=== PATIENT | male | born 1995 | race Hispanic/Latino ===

== ENCOUNTER 2022-08-22 14:55 | Emergency (ER) | payer SELFPAY ==
--- OUTSIDE RECORDS SUMMARY | 2022-08-22 14:59 | XMS REPORT | Continuity of Care Document ---
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 [id number] 17:40:00 Test Item Value Reference Range Interpretation Comments Segs (test code = Segs) 73.7 45.0-75.0 [id number] 17:40:00 Test Item Value Reference Range Interpretation Comments Monocytes # (test code 1.4 See_Comment [Aut omated message] The = Monocytes #) system which generated this result tra nsmitted reference range : <=0.8. The reference r matilde was not used to int erpret this result as normal/abnormal . [id number] 17:40:00 Test Item Value Reference Range Interpretation Comments Eosinophils # (test code 0.1 See_Comment [A utomated message] The = Eosinophils #) system whic h generated this result tra nsmitted reference range : <=0.5. The reference r matilde was not used to int erpret this result as normal/abnormal . [id number] 17:40:00 Test Item Value Reference Range Interpretation Comments Lymphocytes # (test code = Lymphocytes 2.0 1.0-5.5 #) [id number] 17:40:00 Test Item Value Reference Range Interpretation Comments Basophils (test code = 0.4 See_Comment [Aut omated message] The Basophils) system which ge nerated this result tra nsmitted reference range : <=1.0. The reference r matilde was not used to int erpret this result as normal/abnormal . [facility]
--- NOTE | 2022-08-22 16:44 | RAD REPORT ---
EXAM DESCRIPTION: RAD -Hand Left 3 View - 08/22/2022 4:32 pm CLINICAL HISTORY: Left hand pain status post injury FINDINGS: No fracture or dislocation is seen.
--- NOTE | 2022-08-22 16:48 | ER ---
Nurse's Notes [facility] Name: Corey Herr Age: 27 yrs Sex: Male : 1995 Arrival Date: 08/22/2022 Time: 14:56 Bed 10 Private MD: Diagnosis: Other sprain of left little finger Presentation: 08/22 15:02 Chief complaint: Patient states: L hand 5th digit pain, swelling, and bruising since ll1 hurting it on Tuesday playing football. Coronavirus screen: Vaccine status: Patient reports being unvaccinated. Client denies travel out of the [place] in the last 14 days. At this time, the client does not indicate any symptoms associated with coronavirus-19. Ebola Screen: Patient denies travel to an Ebola-affected area in the 21 days before illness onset. Initial Sepsis Screen: Does the patient meet any 2 criteria? No. Patient's initial sepsis screen is negative. Does the patient have a suspected source of infection? Yes: Bone or joint infection. Risk Assessment: Do you want to hurt yourself or someone else? Patient reports no desire to harm self or others. Onset of symptoms was August 20, 2022. 15:02 Method Of Arrival: Ambulatory ll1 15:02 Acuity: YNSE 4 ll1 Triage Assessment: 17:24 General: Appears in no apparent distress. comfortable, Behavior is calm, cooperative, kr3 appropriate for age. Pain: Complains of pain in dorsal aspect of distal phalanx of left little finger, dorsal aspect of middle phalanx of left little finger, dorsal aspect of proximal phalanx of left little finger and left little fingernail. 17:26 Injury Description: Bruise sustained to left little finger. kr3 17:27 Musculoskeletal: bruising in left pinky finger. kr3 Historical: - Allergies: 15:03 No Known Allergies; ll1 - PMHx: 15:03 None; ll1 - PSHx: 15:03 None; ll1 - Immunization history:: Client reports having NOT received the Covid vaccine. - Social history:: Smoking status: Patient denies any tobacco usage or history of. Screenin:[facility] ED Fall Risk Assessment (Adult) History of falling in the last 3 months, kr3 including since admission No falls in past 3 months (0 pts) Confusion or Disorientation No (0 pts) Intoxicated or Sedated No (0 pts) Impaired Gait No (0 pts) Mobility Assist Device Used No (0 pt) Altered Elimination No (0 pt) Score/Fall Risk Level 0 - 2 = Low Risk. Abuse screen: Denies threats or abuse. Nutritional screening: No deficits noted. Tuberculosis screening: No symptoms or risk factors identified. Assessment: 16:00 Reassessment: Patient appears in no apparent distress at this time. Patient and/or kr3 family updated on plan of care and expected duration. Pain level reassessed. Patient is alert, oriented x 3, equal unlabored respirations, skin warm/dry/pink. 17:23 Reassessment: Patient appears in no apparent distress at this time. Patient and/or kr3 family updated on plan of care and expected duration. Pain level reassessed. Patient is alert, oriented x 3, equal unlabored respirations, skin warm/dry/pink. Vital Signs: 15:02 BP 129 / 79; Pulse 76; Resp 17; Temp 99.0; Pulse Ox 99% ; Weight 87.09 kg; Height 5 ft. ll1 5 in. (165.10 cm); Pain 8/10; 17:23 BP 127 / 76; Pulse 74; Resp 17; Pulse Ox 100% on R/A; kr3 15:02 Body Mass Index 31.95 (87.09 kg, 165.10 cm) ll1 ED Course: 14:56 Patient arrived in ED. as 15:03 Triage completed. ll1 15:03 Arm band placed on. ll1 15:05 Anuja Crawley FNP is [facility]. 7 15:05 Alphonso Gandhi MD is Attending Physician. 7 15:05 Bed in low position. Call light in reach. Side rails up X 1. kr3 16:34 XRAY Hand LEFT 3 View In Process Unspecified. EDMS 17:25 No provider procedures requiring assistance completed. Patient did not have IV access kr3 during this emergency room visit. Administered Medications: No medications were administered Medication: 17:27 VIS not applicable for this client. kr3 Outcome: 16:47 Discharge ordered by . [facility] 17:25 Discharged to home ambulatory. kr3 17:25 Condition: stable 17:25 Discharge instructions given to patient, Instructed on discharge instructions, follow up and referral plans. Demonstrated understanding of instructions, follow-up care. 17:27 Patient left the ED. kr3 Signatures: Dispatcher [employer] Lorie Talbot Lynsay RN RN ll1 Anuja Crawley FNP FNP jh7 Jasmina Arias RN RN kr3 Corrections: (The following items were deleted from the chart) 15:03 15:03 PSHx: None; [facility]
--- NOTE | 2022-08-22 16:48 | EDPHYS ---
Physician Documentation [facility] Name: Corey Herr Age: 27 yrs Sex: Male : 1995 Arrival Date: 08/22/2022 Time: 14:56 Bed 10 Private MD: ED Physician Alphonso Gandhi HPI: 08/22 15:03 This 27 yrs old Male presents to ER via Ambulatory with complaints of Finger jh7 Injury. 15:03 Mechanism of injury: Jammed while playing football. Associated injuries: The patient gris sustained Left fifth digit, contusion. Onset: The symptoms/episode began/occurred 2 day(s) ago. 27-year-old male presents with left fifth digit injury. States that on Tuesday he jammed his finger while playing football.. Historical: - Allergies: 15:03 No Known Allergies; ll1 - PMHx: 15:03 None; ll1 - PSHx: 15:03 None; ll1 - Immunization history:: Client reports having NOT received the Covid vaccine. - Social history:: Smoking status: Patient denies any tobacco usage or history of. ROS: 15:03 Constitutional: Negative for fever, chills, and weight loss, Eyes: Negative for injury, jh7 pain, redness, and discharge, Neck: Negative for injury, pain, and swelling, Cardiovascular: Negative for chest pain, palpitations, and edema, Respiratory: Negative for shortness of breath, cough, wheezing, and pleuritic chest pain, Abdomen/GI: Negative for abdominal pain, nausea, vomiting, diarrhea, and constipation, Back: Negative for injury and pain, Skin: Negative for injury, rash, and discoloration, Neuro: Negative for headache, weakness, numbness, tingling, and seizure. 15:03 MS/extremity: Positive for injury or acute deformity, contusion, swelling, tenderness, of the Left fifth digit. 15:03 All other systems are negative. Exam: 15:03 Constitutional: This is a well developed, well nourished patient who is awake, alert, jh7 and in no acute distress. Head/Face: Normocephalic, atraumatic. Neck: Trachea midline, no thyromegaly or masses palpated, and no cervical lymphadenopathy. Supple, full range of motion without nuchal rigidity, or vertebral point tenderness. No Meningismus. Cardiovascular: Regular rate and rhythm with a normal S1 and S2. No gallops, murmurs, or rubs. Normal PMI, no JVD. No pulse deficits. Respiratory: Lungs have equal breath sounds bilaterally, clear to auscultation and percussion. No rales, rhonchi or wheezes noted. No increased work of breathing, no retractions or nasal flaring. Back: No spinal tenderness. No costovertebral tenderness. Full range of motion. Skin: Warm, dry with normal turgor. Normal color with no rashes, no lesions, and no evidence of cellulitis. Neuro: Awake and alert, GCS 15, oriented to person, place, time, and situation. Sensory grossly intact. Normal gait. 15:03 Musculoskeletal/extremity: ROM: intact in all extremities, Circulation is intact in all extremities. Pulses: are normal with no appreciated deficits, Sensation intact. Bruising and swelling present at the DIP of the left fifth digit. Neurovascularly intact, limited flexion secondary to pain. Vital Signs: 15:02 BP 129 / 79; Pulse 76; Resp 17; Temp 99.0; Pulse Ox 99% ; Weight 87.09 kg; Height 5 ft. ll1 5 in. (165.10 cm); Pain 8/10; 17:23 BP 127 / 76; Pulse 74; Resp 17; Pulse Ox 100% on R/A; kr3 15:02 Body Mass Index 31.95 (87.09 kg, 165.10 cm) ll1 Procedures: 15:03 Splinting: Splint applied to left 5th digit using finger splint, applied by nurse. [facility] Patient tolerated well. MDM: 15:05 Patient medically screened. [facility] 16:50 Differential diagnosis: Fracture, sprain, contusion, dislocation. Data reviewed: vital [facility] signs, nurses notes, radiologic studies, plain films. Independent interpretation of the following test(s) in the Emergency Department X-Ray: My interpretation is No acute findings. Counseling: I had a detailed discussion with the patient and/or guardian regarding: the historical points, exam findings, and any diagnostic results supporting the discharge/admit diagnosis, to return to the emergency department if symptoms worsen or persist or if there are any questions or concerns that arise at home. 08/22 15:08 Order name: XRAY Hand LEFT 3 View; Complete Time: 16:47 [facility] 08/22 16:25 Order name: Finger Splint; Complete Time: 17:23 jh7 Administered Medications: No medications were administered Disposition: 17:32 Co-signature as Attending Physician, Alphonso Gandhi MD I agree with the assessment and kdr plan of care. Disposition Summary: 08/22/22 16:47 Discharge Ordered Location: Home [facility] Problem: new [facility] Symptoms: are unchanged [facility] Condition: Stable [facility] Diagnosis - Other sprain of left little finger [facility] Followup: [facility] - With: Private Physician - When: 2 - 3 days - Reason: Recheck today's complaints Discharge Instructions: - Discharge Summary Sheet 7 - Finger Sprain, Adult [facility] Forms: - Medication Reconciliation Form [facility] - Thank You Letter [facility] - Work release form iw Signatures: Dispatcher [employer] EDAlphonso Hernandez MD MD kdr Franklyn Salazar RN RN ll1 Anuja Crawley, [employer] [facility] Corrections: (The following items were deleted from the chart) 15:03 15:03 PSHx: None; ll1 ll1
[2022-08-22 17:36] VITALS: TEMP 99
[2022-08-22 17:37] VITALS: BP 127/76; O2SAT 100
== END 2022-08-22 17:27 | disposition home or self-care (01) ==
LOC: ER 14:55
DX: S63.697A Other sprain of left little finger, initial encounter (principal)
CPT/HCPCS: 99283

== ENCOUNTER 2023-03-04 19:06 | Emergency (ER) | payer SELFPAY ==
--- NOTE | 2023-03-04 20:22 | ER ---
Nurse's Notes [facility] Name: Corey Herr Age: 27 yrs Sex: Male : 1995 Arrival Date: 03/04/2023 Time: 19:06 Bed 17 Private MD: Diagnosis: Otitis media, unspecified, left ear Presentation: 03/04 19:24 Chief complaint: Patient states: left ear pain of 10 that radiates to left jaw,onset pf1 today. Patient stated was cleaning his ears after showing and started having more clogging sensation to left ear. Patient stated went swimming approximately 2 weeks ago. 19:24 Coronavirus screen: Vaccine status: Patient reports being unvaccinated. Client denies pf1 travel out of the [place] in the last 14 days. At this time, the client does not indicate any symptoms associated with coronavirus-19. Ebola Screen: Patient negative for fever greater than or equal to 101.5 degrees Fahrenheit, and additional compatible Ebola Virus Disease symptoms. Initial Sepsis Screen: Does the patient meet any 2 criteria? No. Patient's initial sepsis screen is negative. Does the patient have a suspected source of infection? No. Patient's initial sepsis screen is negative. Risk Assessment: Do you want to hurt yourself or someone else? Patient reports no desire to harm self or others. 19:24 Method Of Arrival: Ambulatory pf1 19:24 Acuity: YNES 4 pf1 Historical: - Allergies: 19:41 No Known Allergies; pf1 - Home Meds: 19:41 None [Active]; pf1 - PMHx: 19:41 None; pf1 - PSHx: 19:41 None; pf1 - Immunization history:: Adult Immunizations up to date, Client reports having NOT received the Covid vaccine. Last tetanus immunization: > 10 years ago Flu vaccine is not up to date. - Social history:: Smoking status: Patient denies any tobacco usage or history of. Patient uses alcohol, occasionally. Patient/guardian denies using street drugs. Screenin:54 [facility] ED Fall Risk Assessment (Adult) History of falling in the last 3 months, pf1 including since admission No falls in past 3 months (0 pts) Confusion or Disorientation No (0 pts) Intoxicated or Sedated No (0 pts) Impaired Gait No (0 pts) Mobility Assist Device Used No (0 pt) Altered Elimination No (0 pt) Score/Fall Risk Level 0 - 2 = Low Risk Oriented to surroundings, Maintained a safe environment, Educated pt \T\ family on fall prevention, incl call for assistance when getting out of bed, Assessed \T\ reinforced patient's understanding of fall precautions, Provided non-skid footwear, Hourly rounding (assess needs \T\ fall precautionary measures) done, Used ambulatory aids as needed (educated on \T\ assisted with), Used gait belt as appropriate. Abuse screen: Denies threats or abuse. Nutritional screening: No deficits noted. Tuberculosis screening: No symptoms or risk factors identified. Assessment: 19:30 General: Appears in no apparent distress. comfortable, well groomed, well developed, pf1 Behavior is calm, cooperative, appropriate for age, quiet. 19:30 Pain: Complains of pain in left ear Pain currently is 10 out of 10 on a pain scale. pf1 Neuro: Level of Consciousness is awake, alert, obeys commands, Oriented to person, place, time, situation. Cardiovascular: No deficits noted. Capillary refill < 3 seconds Patient's skin is warm and dry. Respiratory: No deficits noted. Airway is patent Respiratory effort is even, unlabored, Respiratory pattern is regular, symmetrical. GI: No deficits noted. No signs and/or symptoms were reported involving the gastrointestinal system. : No deficits noted. No signs and/or symptoms were reported regarding the genitourinary system. EENT: left ear pain. Derm: No deficits noted. No signs and/or symptoms reported regarding the dermatologic system. Vital Signs: 19:24 BP 132 / 80; Pulse 75; Resp 18; Temp 98.3; Pulse Ox 100% on R/A; Weight 81.65 kg; pf1 Height 5 ft. 4 in. ; Pain 10/10; 19:24 Body Mass Index 30.90 (81.65 kg, 162.56 cm) pf1 19:24 Pain Scale: Adult pf1 ED Course: 19:16 Patient arrived in ED. im 19:18 Mao Cottrell PA is PHCP. cp 19:18 Mao Ontiveros MD is Attending Physician. cp 19:30 Patient has correct armband on for positive identification. Bed in low position. Call pf1 light in reach. 19:39 Triage completed. pf1 20:14 Mcginnis, Cathie, RN is Primary Nurse. 3 20:20 Beena Lewis MD is Referral Physician. cp 20:54 No provider procedures requiring assistance completed. Patient did not have IV access pf1 during this emergency room visit. 20:54 Provided Education on: prescriptions education. pf1 Administered Medications: 20:32 Drug: Ibuprofen PO 800 mg Route: PO; cm10 20:55 Follow up: Response: No adverse reaction; Marked relief of symptoms; Pain is decreased pf1 20:32 Drug: Hydrocodone-Acetaminophen PO (7.5 mg-325 mg) 1 tabs Route: PO; cm10 20:55 Follow up: Response: No adverse reaction; Marked relief of symptoms; Pain is decreased; pf1 RASS: Alert and Calm (0) 20:32 Drug: Dexamethasone PO 10 mg Route: PO; cm10 20:55 Follow up: Response: No adverse reaction pf1 20:32 Drug: Amoxicillin-Clavulanate PO 875 mg Route: PO; cm10 20:55 Follow up: Response: No adverse reaction pf1 Outcome: 20:21 Discharge ordered by . cp 20:47 Patient left the ED. 3 Signatures: Mao Cottrell PA PA cp Cathie Mcginnis, RN RN 3 Jennifer Nice RN RN pf1 Nhi Baer Clarissa RN RN cm10 Corrections: (The following items were deleted from the chart) 19:40 19:24 BP 132 / 80; Pulse 75bpm; Resp 75bpm; Pulse Ox 100% RA; Temp 98.3F; 81.65 kg; pf1 Height 5 ft. 4 in.; BMI: 30.9; Pain 10, Adult; pf1
--- NOTE | 2023-03-04 20:22 | EDPHYS ---
Physician Documentation [facility] Name: Corey Herr Age: 27 yrs Sex: Male : 1995 Arrival Date: 03/04/2023 Time: 19:06 Bed 17 Private MD: ED Physician Mao Ontiveros HPI: 03/04 20:05 This 27 yrs old Male presents to ER via Ambulatory with complaints of Ear Pain cp - left. 20:05 The patient presents with pain, that is acute, tenderness. The complaints affect the cp left ear. The complaints affect the left ear. Onset: The symptoms/episode began/occurred today. Associated signs and symptoms: Pertinent positives: radiating pain to left jaw, Pertinent negatives: fever, rhinorrhea, sinus trouble, sore throat, vomiting. Severity of symptoms: in the emergency department the symptoms are unchanged despite home interventions. Historical: - Allergies: 19:41 No Known Allergies; pf1 - Home Meds: 19:41 None [Active]; pf1 - PMHx: 19:41 None; pf1 - PSHx: 19:41 None; pf1 - Immunization history:: Adult Immunizations up to date, Client reports having NOT received the Covid vaccine. Last tetanus immunization: > 10 years ago Flu vaccine is not up to date. - Social history:: Smoking status: Patient denies any tobacco usage or history of. Patient uses alcohol, occasionally. Patient/guardian denies using street drugs. ROS: 20:10 Constitutional: Negative for body aches, chills, fever, poor PO intake. cp 20:10 Eyes: Negative for injury, pain, redness, and discharge. cp 20:10 ENT: Positive for ear pain, Negative for drainage from ear(s), Teeth pain sore throat, difficulty swallowing, difficulty handling secretions. 20:10 Neck: Negative for pain with movement, pain at rest, stiffness. 20:10 Respiratory: Negative for cough, shortness of breath, wheezing. 20:10 Neuro: Negative for altered mental status, dizziness, headache, weakness. 20:10 All other systems are negative. Exam: 20:15 Constitutional: The patient appears in no acute distress, alert, awake, non-toxic, well cp developed, well nourished, uncomfortable. 20:15 Head/Face: Normocephalic, atraumatic. cp 20:15 Eyes: Periorbital structures: appear normal, Conjunctiva: normal, no exudate, no injection, Sclera: no appreciated abnormality, Lids and lashes: appear normal, bilaterally. 20:15 ENT: External ear(s): pain with movement, that is severe, of the pinna of left ear and left ear canal, Ear canal(s): purulent discharge, in the left canal, swelling, of the left canal, TM's: bulging, on the left, Examination of the other ear shows no obvious abnormality, Nose: is normal, Mouth: Lips: moist, Oral mucosa: pink and intact, moist, Posterior pharynx: is normal, airway is patent, no erythema, no exudate, Dental exam: normal. 20:15 Neck: ROM/movement: is normal, is supple, without pain, no range of motions limitations, no meningismus, no nuchal rigidity. 20:15 Chest/axilla: Inspection: normal. 20:15 Cardiovascular: Rate: normal, Rhythm: regular. 20:15 Respiratory: the patient does not display signs of respiratory distress, Respirations: normal, no use of accessory muscles, no retractions, labored breathing, is not present, Breath sounds: are clear throughout. Vital Signs: 19:24 BP 132 / 80; Pulse 75; Resp 18; Temp 98.3; Pulse Ox 100% on R/A; Weight 81.65 kg; pf1 Height 5 ft. 4 in. ; Pain 10/10; 19:24 Body Mass Index 30.90 (81.65 kg, 162.56 cm) pf1 19:24 Pain Scale: Adult pf1 MDM: 19:27 Patient medically screened. cp 20:00 Differential diagnosis: otitis media, otitis externa, ruptured TM, foreign body, cp cerumen impaction, barotrauma . 20:21 Data reviewed: vital signs, nurses notes. cp 20:21 I considered the following discharge prescriptions or medication management in the emergency department Medications were administered in the Emergency Department. See MAR. Counseling: I had a detailed discussion with the patient and/or guardian regarding the historical points, exam findings, and any diagnostic results supporting the discharge/admit diagnosis, to return to the emergency department if symptoms worsen or persist or if there are any questions or concerns that arise at home. Response to treatment: the patient's symptoms have mildly improved after treatment, and as a result, I will discharge patient. Administered Medications: 20:32 Drug: Ibuprofen PO 800 mg Route: PO; cm10 20:55 Follow up: Response: No adverse reaction; Marked relief of symptoms; Pain is decreased pf1 20:32 Drug: Hydrocodone-Acetaminophen PO (7.5 mg-325 mg) 1 tabs Route: PO; cm10 20:55 Follow up: Response: No adverse reaction; Marked relief of symptoms; Pain is decreased; pf1 RASS: Alert and Calm (0) 20:32 Drug: Dexamethasone PO 10 mg Route: PO; cm10 20:55 Follow up: Response: No adverse reaction pf1 20:32 Drug: Amoxicillin-Clavulanate PO 875 mg Route: PO; cm10 20:55 Follow up: Response: No adverse reaction pf1 Disposition Summary: 03/04/23 20:21 Discharge Ordered Location: Home cp Problem: new cp Symptoms: have improved cp Condition: Stable cp Diagnosis - Otitis media, unspecified, left ear cp Followup: cp - With: Beena Lewis MD - When: 2 - 3 days - Reason: Recheck today's complaints Discharge Instructions: - Discharge Summary Sheet cp - Ear Drops, Adult cp - Otitis Media, Adult cp Forms: - Medication Reconciliation Form cp - Thank You Letter cp - Antibiotic Education cp - Prescription Opioid Use cp - Patient Portal Instructions cp - Leadership Thank You Letter cp Prescriptions: - Augmentin 875-125 mg Oral Tablet - take 1 tablet by ORAL route every 12 hours for 10 days; 20 tablet; Refills: 0, cp Product Selection Permitted - Ibuprofen 800 mg Oral Tablet - take 1 tablet by ORAL route every 8 hours As needed take with food; 30 tablet; cp Refills: 0, Product Selection Permitted - Medrol (Sebastian) 4 mg Oral Tablets, Dose Pack - take 1 tablet by ORAL route as directed - follow package instructions; 1 cp packet; Refills: 0, Product Selection Permitted - Ciprodex 0.3-0.1 % Otic drops,suspension - instill 4 drops by OTIC route every 12 hours for 7 days , for ears ONLY; 1 cp unit; Refills: 0, Product Selection Permitted Signatures: Mao Cottrell PA PA cp Finley, Pamala, RN RN pf1 Melany Rangel RN RN cm10
[2023-03-04] MEDS ORDERED: dexAMETHasone 4 MG TAB ONE (20:28)
[2023-03-04] MEDS ORDERED: AMOX/K CLAV 875 MG TAB ONE (20:28)
[2023-03-04] MEDS ORDERED: HYDROCODONE/APAP 7.5/325 MG TAB ONE (20:28)
[2023-03-04] MEDS ORDERED: IBUPROFEN 400 MG TAB ONE (20:29)
[2023-03-04 21:05] VITALS: BP 132/80; TEMP 98.3; O2SAT 100
== END 2023-03-04 20:47 | disposition home or self-care (01) ==
LOC: ER 19:06
DX: H66.92 Otitis media, unspecified, left ear (principal)
CPT/HCPCS: 99282; J8540

== ENCOUNTER 2024-04-24 17:34 | Emergency (ER) | payer SELFPAY ==
--- NOTE | 2024-04-24 19:04 | RAD REPORT ---
EXAM: Hand Left 3 View HISTORY: [facility] MAIN PAIN Bed Name: [id number] COMPARISON: 08/22/2022 TECHNIQUE: 3 radiographic views of the LEFT hand submitted. FINDINGS: No evidence of acute fracture or dislocation. Joint alignment is maintained. No soft tissu e swelling is seen.. No significant degenerative changes are present. IMPRESSION: No significant bone or joint abnormality.
--- NOTE | 2024-04-24 19:13 | EDPHYS ---
Physician Documentation [facility] Name: Corey Herr Age: 28 yrs Sex: Male : 1995 Arrival Date: 04/24/2024 Time: 17:34 Bed 13 Private MD: ED Physician Skyler العلي HPI: 04/24 18:06 This 28 yrs old Male presents to ER via Ambulatory with complaints of Arm Pain.kb 18:06 Pt is a 28 year old male who presents for left thumb pain that started 1.5 weeks ago kb after wrestling with cousin. States he woke up with pain the next morning and it hasn't gotten any better. Denies swelling or decreased ROM. . Historical: - Allergies: 17:43 No Known Allergies; hb - Home Meds: 17:43 None [Active]; hb - PMHx: 17:43 Hypertension; hb - PSHx: 17:43 None; hb - Immunization history:: Adult Immunizations up to date. - Infectious Disease History:: Denies. - Social history:: Smoking status: Patient denies any tobacco usage or history of. ROS: 18:06 Constitutional: As per HPI kb Exam: 18:06 Constitutional: This is a well developed, well nourished patient who is awake, alert, kb and in no acute distress. Head/Face: Normocephalic, atraumatic. ENT: Moist Mucous membranes Cardiovascular: Regular rate Respiratory: Respirations even and unlabored. No increased work of breathing. Talking in full sentences Abdomen/GI: Soft, non-tender. No distention Skin: Warm, dry with normal turgor. Normal color. MS/ Extremity: Pulses equal, no cyanosis. Neurovascular intact. Full, normal range of motion. Neuro: Awake and alert, GCS 15, oriented to person, place, time, and situation. Moves all extremities. Normal gait. Vital Signs: 17:41 BP 143 / 96; Pulse 78; Resp 16; Temp 97.5; Pulse Ox 100% on R/A; Weight 81.65 kg; hb Height 5 ft. 3 in. ; Pain 5/10; 18:00 BP 134 / 91; Pulse 79; Resp 18; Pulse Ox 97% on R/A; db 19:39 BP 132 / 84; Pulse 78; Resp 18; Temp 98; Pulse Ox 100% on R/A; kj2 17:41 Body Mass Index 31.89 (81.65 kg, 160.02 cm) hb 17:41 Pain Scale: Adult hb MDM: 17:36 Patient medically screened. kb 18:07 Differential diagnosis: dislocation, closed fracture, sprain. Data reviewed: vital kb signs, nurses notes. Counseling: I had a detailed discussion with the patient and/or guardian regarding the historical points, exam findings, and any diagnostic results supporting the discharge/admit diagnosis, radiology results, the need for outpatient follow up, a family practitioner, to return to the emergency department if symptoms worsen or persist or if there are any questions or concerns that arise at home. 04/24 17:39 Order name: Hand Left 3 View XRAY; Complete Time: 19:12 kb 04/24 19:37 Order name: Thumb Spica Splint; Complete Time: 19:42 kb Administered Medications: No medications were administered Disposition: 19:42 I was immediately available on-site in the Emergency Department for consultation in the ms3 care of the patient. Disposition Summary: 04/24/24 19:12 Discharge Ordered Notes: Location: Home kb Condition: Stable kb Diagnosis - Pain in left hand kb Followup: kb - With: Emergency Department - When: As needed - Reason: Worsening of condition Followup: kb - With: Private Physician - When: 2 - 3 days - Reason: Recheck today's complaints, Continuance of care, Re-evaluation by your physician Discharge Instructions: - Discharge Summary Sheet kb - Musculoskeletal Pain kb Forms: - Medication Reconciliation Form kb - Antibiotic Education kb - Prescription Opioid Use kb - Patient Portal Instructions kb - Leadership Thank You Letter kb Prescriptions: - Ibuprofen 800 mg Oral Tablet - take 1 tablet ORAL route every 8 hours As needed take with food; 30 tablet; kb Refills: 0, Product Selection Permitted Signatures: Dispatcher [employer] Mary Lou Gibson, JOHNY HERNANDEZ-Margot Barragan, RN RN Skyler Quintero DO DO ms3
--- NOTE | 2024-04-24 19:13 | ER ---
Nurse's Notes [facility] Name: Corey Herr Age: 28 yrs Sex: Male : 1995 Arrival Date: 04/24/2024 Time: 17:34 Bed 13 Private MD: Diagnosis: Pain in left hand Presentation: 04/24 17:41 Chief complaint: Left thumb pain x 1 month. Coronavirus screen: At this time, the hb client does not indicate any symptoms associated with coronavirus-19. Ebola Screen: No symptoms or risks identified at this time. Initial Sepsis Screen: Does the patient meet any 2 criteria? No. Patient's initial sepsis screen is negative. Does the patient have a suspected source of infection? No. Patient's initial sepsis screen is negative. Risk Assessment: Do you want to hurt yourself or someone else? Patient reports no desire to harm self or others. Onset of symptoms was March 2024. 17:41 Method Of Arrival: Ambulatory hb 17:41 Acuity: YNES 4 hb Historical: - Allergies: 17:43 No Known Allergies; hb - Home Meds: 17:43 None [Active]; hb - PMHx: 17:43 Hypertension; hb - PSHx: 17:43 None; hb - Immunization history:: Adult Immunizations up to date. - Infectious Disease History:: Denies. - Social history:: Smoking status: Patient denies any tobacco usage or history of. Screenin:49 [facility] ED Fall Risk Assessment (Adult) History of falling in the last 3 months, db including since admission No falls in past 3 months (0 pts) Confusion or Disorientation No (0 pts) Intoxicated or Sedated No (0 pts) Impaired Gait No (0 pts) Mobility Assist Device Used No (0 pt) Altered Elimination No (0 pt) Score/Fall Risk Level 0 - 2 = Low Risk Oriented to surroundings, Maintained a safe environment. Abuse screen: Denies threats or abuse. Denies injuries from another. Nutritional screening: No deficits noted. Tuberculosis screening: No symptoms or risk factors identified. Assessment: 18:46 Reassessment: Patient appears in no apparent distress at this time. Patient and/or db family updated on plan of care and expected duration. Pain level reassessed. Patient is alert, oriented x 3, equal unlabored respirations, skin warm/dry/pink. General: Appears in no apparent distress. comfortable, Behavior is calm, cooperative. Pain:. 18:47 Pain: Complains of pain in left hand. Respiratory: Airway is patent Respiratory effort db is even, unlabored, Respiratory pattern is regular, symmetrical. 19:05 Reassessment: Patient appears in no apparent distress at this time. Patient and/or kj2 family updated on plan of care and expected duration. Pain level reassessed. Patient is alert, oriented x 3, equal unlabored respirations, skin warm/dry/pink. 19:39 Reassessment: Patient appears in no apparent distress at this time. Patient and/or kj2 family updated on plan of care and expected duration. Pain level reassessed. Patient is alert, oriented x 3, equal unlabored respirations, skin warm/dry/pink. Vital Signs: 17:41 BP 143 / 96; Pulse 78; Resp 16; Temp 97.5; Pulse Ox 100% on R/A; Weight 81.65 kg; hb Height 5 ft. 3 in. ; Pain 5/10; 18:00 BP 134 / 91; Pulse 79; Resp 18; Pulse Ox 97% on R/A; db 19:39 BP 132 / 84; Pulse 78; Resp 18; Temp 98; Pulse Ox 100% on R/A; kj2 17:41 Body Mass Index 31.89 (81.65 kg, 160.02 cm) hb 17:41 Pain Scale: Adult hb ED Course: 17:36 Patient arrived in ED. mr 17:36 Andrew Mary Lou, JOHNY [facility]. kb 17:36 Skyler العلي DO is Attending Physician. kb 17:41 Triage completed. hb 17:43 Arm band placed on. hb 17:44 Margot Prabhakar, RN is Primary Nurse. hb 17:52 Hand Left 3 View XRAY In Process Unspecified. EDMS 18:48 Patient has correct armband on for positive identification. Bed in low position. Call db light in reach. Side rails up X 1. Pulse ox on. NIBP on. Pillow given. 19:35 Provided Education on: PAIN MANAGEMENT. kj2 19:35 No provider procedures requiring assistance completed. kj2 19:36 Patient did not have IV access during this emergency room visit. kj2 Administered Medications: No medications were administered Medication: 18:55 VIS not applicable for this client. db Outcome: 19:12 Discharge ordered by . mark 19:36 Condition: stable kj2 19:36 Discharged to home ambulatory, kj2 19:36 Discharge instructions given to patient, Instructed on discharge instructions, follow up and referral plans. medication usage, Demonstrated understanding of instructions, follow-up care, medications, Prescriptions given X 1, 19:42 Patient left the ED. kj2 Signatures: Dispatcher [employer] EDMS Mary Lou Morales, FIELD MARKETING LEAD-C FIELD MARKETING LEAD-CkSilvia Titus, Reg Reg mr Margot Prabhakar, RN RN Fauzia Mejia RN RN Josie Hernandes RN RN kj2 Corrections: (The following items were deleted from the chart) 18:47 18:46 Reassessment: Patient appears in no apparent distress at this time. Patient db and/or family updated on plan of care and expected duration. Pain level reassessed. Patient is alert, oriented x 3, equal unlabored respirations, skin warm/dry/pink. db
[2024-04-24 19:58] VITALS: BP 132/84; TEMP 98; O2SAT 100
== END 2024-04-24 19:42 | disposition home or self-care (01) ==
LOC: ER 17:34
DX: M79.642 Pain in left hand (principal)
CPT/HCPCS: 99283